=== PATIENT | male | born 1955 | race Caucasian/White ===

== ENCOUNTER 2016-06-05 11:09 | Observation (INO) ==
--- NOTE | 2016-06-05 11:42 | Emergency Department Note ---
Disposition Clinical Impression: ESRD (end stage renal disease), Anemia in chronic kidney disease (CKD), Diabetic kidney disease, Hypoglycemia, Dialysis catheter clot or failure, Hypertension, IV infiltration Disposition: Admitted As Inpatient Condition: Fair Referrals: Brant Souza MD [Primary Care Provider] - Forms: Work/School Release, ED Satisfaction Letter General Adult HPI - General Chief complaint: ED General Medical Stated complaint: IVport needs replaced Time Seen by Provider: 06/05/16 11:37 Source: patient Limitations: no limitations - History of Present Illness HPI Narrative: ST 10-year-old male with a history of dialysis therapy with multiple failed dialysis catheters reports emergency department requesting catheter placement for dialysis. The patient was seen a few days ago in the ED and they were trying to arrange an outpatient placement of the dialysis port but this was not achieved. The patient has no physical complaints apart from needing the dialysis catheter. The patient denies chest pain or shortness of breath. He has had no redness of breath while laying flat. There is no history of abdominal pain vomiting or diarrhea and no bloody stools. He is a type I diabetic and reports that his blood sugar has been around 200. He gave himself a dose of insulin this morning. There is no history of confusion or headache or fever. No muscle cramps or fasciculations noted palpitations or syncope no trauma falls injuries or acute complaints otherwise. The patient essentially complains that he has not had dialysis since Thursday secondary to no functional port. Interventional radiology was aware of the patient's need for a port and reported they could place one if he came to the ED. Onset (ago): day(s) Pain Scale: 1 - Related Data Home Medications Medication Instructions Recorded Confirmed Fenofibrate [Lofibra] 160 mg PO DAILY 10/15/15 06/05/16 Insulin NPH Hum/Reg Insulin Hm 50 - 60 unit SQ DAILY 10/15/15 06/05/16 [Novolin 70-30 100 Unit/ml Vial] Oxycodone HCl/Acetaminophen 1 each PO HS 10/15/15 06/05/16 [Percocet 5-325 mg Tablet] Zolpidem [Ambien] 10 mg PO HS PRN 10/15/15 06/05/16 CloNIDine HCl 0.1 mg PO DAILY 06/05/16 06/05/16 Ondansetron [Zofran] 8 mg PO PRN PRN 06/05/16 06/05/16 Pantoprazole Sodium [Protonix] 40 mg PO DAILY 06/05/16 06/05/16 Allergies Allergy/AdvReac Type Severity Reaction Status Date / Time codeine Allergy Itching Verified 06/05/16 11:26 iodine Allergy Itching Verified 06/05/16 11:26 Penicillins Allergy Itching Verified 06/05/16 11:26 Sulfa (Sulfonamide Allergy Itching Verified 06/05/16 11:26 Antibiotics) Jwghrjl-[id number]-Num Reductase AdvReac Weakness Verified 06/05/16 11:26 Inhibitor [Statins] IV dye Allergy Itching Uncoded 06/05/16 11:26 All systems ED: reviewed and negative except as stated. Past Medical History - Past Medical History Medical history: Reports: coronary artery disease, diabetes, dialysis, hyperlipidemia, hypertension, renal disease Surgical history: Reports: appendectomy, herniorrhaphy, other Psychiatric history: Reports: anxiety, depression - Social History Smoking Status: Never smoker Smokeless Tobacco Status: No Alcohol use: Reports: none Drug use: Reports: none Physical Exam - General Limitations: no limitations General appearance: alert, in no apparent distress - Head Head exam: atraumatic, normocephalic, normal inspection - Eye Eye exam: Present: normal appearance, PERRL, EOMI. Absent: scleral icterus, conjunctival injection, miosis, mydriasis - ENT ENT exam: normal exam, normal oropharynx, mucous membranes moist, TM's normal bilaterally, normal external ear exam - Neck Neck exam: Present: normal inspection, full ROM, trachea midline. Absent: tenderness - Chest Chest inspection: Present: symmetric chest wall rise. Absent: tenderness - Respiratory Respiratory exam: Present: normal lung sounds bilaterally. Absent: respiratory distress - Cardiovascular Cardiovascular exam: Present: regular rate, normal rhythm, normal heart sounds - Abdominal Exam Abdominal exam: Present: soft, Non-Tender. Absent: tenderness, distention, guarding, rebound, rigidity, pulsatile mass - Extremities Exam Extremities exam: Present: normal inspection, full ROM, normal capillary refill , joint swelling, other (Lower extremity edema symmetric bilateral). Absent: tenderness, pedal edema, calf tenderness - Expanded Lower Extremity Exam Neurovascular/Tendon exam: Absent: motor deficit, sensory deficit, tendon deficit - Back Exam Back exam: Present: normal inspection, full ROM. Absent: tenderness, CVA tenderness (R), CVA tenderness (L), vertebral tenderness - Neurological Exam Neurological exam: Present: alert, oriented X3, CN II-XII intact. Absent: motor sensory deficit - Psychiatric Psychiatric exam: Present: normal affect, normal mood - Skin Skin exam: Present: warm, dry, intact, normal color. Absent: rash, cyanosis, diaphoresis, erythema, pallor, mottled Course Course Narrative: Interventional radiology took the patient to their suite, lab reports a sugar 47 , I notified the ER staff immediately, and nurses going there with an amp of D50. Vital Signs Temperature 97.3 F L 06/05/16 11:21 Pulse Rate 92 06/05/16 11:21 Respiratory Rate 18 06/05/16 11:21 Blood Pressure 192/84 06/05/16 11:21 O2 Sat by Pulse Oximetry 97 06/05/16 11:21 Temperature 97.3 F L 06/05/16 11:21 Pulse Rate 69 06/05/16 14:30 Respiratory Rate 14 06/05/16 14:30 Blood Pressure 181/72 06/05/16 14:30 O2 Sat by Pulse Oximetry 100 06/05/16 14:30 Oxygen Delivery Oxygen Delivery Room Air Medical Decision Making - MDM Narrative Medical decision making narrative: The patient's blood sugar dropped down to 47, he was given orange juice and an amp of D50, they were unable to complete the dialysis catheter placement. Dr. Conn/EDISON felt the patient was not stable enough to get the procedure done based on his hypoglycemia and by mouth intake acutely. The patient is in renal failure will require dialysis tomorrow. Dr. Conn recommends the patient be admitted for glucose control and prepped for surgery tomorrow morning. He will need dialysis tomorrow as well. The patient is currently stable. His recheck blood sugar was 160. Based on his hypoglycemia, renal failure, no access, and dialysis requirement tomorrow, as well as catheter placement requirement, I felt it would be reasonable to consult with the hospitalist. Initial consultations with the hospitalist and utilization review were obtained, there is a social component to the patient's possible admission, however there is significant concern the patient may not be able to follow-up and get his dialysis port placed. Glucose was very low, he has been getting foods and IV dextrose was given but the IV infiltrated some dextrose into the arm. I discussed the case with the contract post office clerk Dr. Dudley who is of the opinion the patient should stay in the hospital for observation and preparation for procedure and blood sugar control. He is available for consult. I discussed the case with the hospitalist on-call Dr. Jain and related the contract post office clerk opinion as well as new information regarding the patient's IV. PICC line team has been consulted for IV placement. The patient's IV infiltrated, we considered hyaluronidase and reviewed with the inpatient pharmacist reported if there is no redness it would be questionable in its application and efficacious this. There was no redness in the arm. There was some mild edema. The patient is currently stable. I consulted with the hospitalist advanced diamond powder technician who is accepted the patient to their care. Patient awaiting bed placement. - Lab Data Lab results reviewed: Yes I reviewed the patient's lab results. Result diagrams: 06/05/16 12:44 06/05/16 12:44 Lab Results 06/05/16 06/05/16 06/05/16 Range/Units 12:44 12:44 12:44 WBC 6.9 (4.3-11.1) K/mcL RBC 3.24 L (4.19-5.50) M/mcL Hgb 10.2 L (12.9-16.9) g/dL Hct 31.9 L (37.5-50.1) % MCV 98.5 D (83.0-100.0) fL MCH 31.5 (28.0-33.3) pg MCHC 32.0 (31.6-35.5) g/dL RDW 15.0 H (11.5-14.5) % Plt Count 190 (140-400) K/mcL MPV 10.0 (9.4-12.4) fL PT 11.8 (9.4-12.1) Seconds INR 1.1 APTT 24.5 L (26.0-36.0) Seconds Sodium 135 L (136-145) mEq/L Potassium 4.6 H (3.5-4.5) mEq/L Chloride 105 (98-109) mEq/L Carbon Dioxide 19 (19-29) mEq/L BUN 54 H (8-26) mg/dL Creatinine 9.71 H (0.72-1.25) mg/dL Est GFR ( Amer) 7 L (> 60) Est GFR (Non-Af Amer) 6 L (> 60) BUN/Creatinine Ratio 6 (6-26) Glucose 75 (70-99) mg/dL POC Glucose (58-89) Calculated Osmolality 293 (280-300) Calcium 9.3 (8.6-10.8) mg/dL Total Bilirubin 0.4 (0.2-1.2) mg/dL AST 24 (5-34) Units/L ALT 14 (0-55) Units/L Alkaline Phosphatase 104 (38-126) Units/L Serum Total Protein 7.1 (6.0-8.3) g/dL Albumin 2.6 L (3.5-5.0) g/dL Globulin 4.5 H (2.4-3.5) g/dL Albumin/Globulin Ratio 0.6 L (1.1-2.2) 06/05/16 Range/Units 13:56 WBC (4.3-11.1) K/mcL RBC (4.19-5.50) M/mcL Hgb (12.9-16.9) g/dL Hct (37.5-50.1) % MCV (83.0-100.0) fL MCH (28.0-33.3) pg MCHC (31.6-35.5) g/dL RDW (11.5-14.5) % Plt Count (140-400) K/mcL MPV (9.4-12.4) fL PT (9.4-12.1) Seconds INR APTT (26.0-36.0) Seconds Sodium (136-145) mEq/L Potassium (3.5-4.5) mEq/L Chloride (98-109) mEq/L Carbon Dioxide (19-29) mEq/L BUN (8-26) mg/dL Creatinine (0.72-1.25) mg/dL Est GFR ( Amer) (> 60) Est GFR (Non-Af Amer) (> 60) BUN/Creatinine Ratio (6-26) Glucose (70-99) mg/dL POC Glucose 47 L* (58-89) Calculated Osmolality (280-300) Calcium (8.6-10.8) mg/dL Total Bilirubin (0.2-1.2) mg/dL AST (5-34) Units/L ALT (0-55) Units/L Alkaline Phosphatase (38-126) Units/L Serum Total Protein (6.0-8.3) g/dL Albumin (3.5-5.0) g/dL Globulin (2.4-3.5) g/dL Albumin/Globulin Ratio (1.1-2.2)
[2016-06-05 12:53] LABS: Hematocrit 31.9 % (37.5-50.1); Hemoglobin 10.2 g/dL (12.9-16.9); Mean Corpuscular Hemoglobin 31.5 pg (28.0-33.3); Platelet Count 190 K/mcL (140-400); Red Blood Count 3.24 M/mcL (4.19-5.50)
[2016-06-05 12:55] LABS: INR 1.1; Prothrombin Time 11.8 Seconds (9.4-12.1)
[2016-06-05 12:58] LABS: Activated Partial Thrombo Time 24.5 Seconds (26.0-36.0)
[2016-06-05 13:09] LABS: Mean Corpuscular Volume 98.5 fL (83.0-100.0)
[2016-06-05 13:10] LABS: Albumin 2.6 g/dL (3.5-5.0); Albumin/Globulin Ratio 0.6 (1.1-2.2); Bilirubin,Total 0.4 mg/dL (0.2-1.2); Calcium 9.3 mg/dL (8.6-10.8); Globulin 4.5 g/dL (2.4-3.5); Potassium 4.6 mEq/L (3.5-4.5); Total Protein 7.1 g/dL (6.0-8.3)
[2016-06-05] MEDS ORDERED: Heparin 1,000 UNITS/500 mL NS 0 ML ONE (13:47)
[2016-06-05] MEDS ORDERED: *HR* Dextrose 50 % in Water (Syg) 50 ML SYRINGE IVP ONE (14:13)
[2016-06-05] MEDS ORDERED: *HR* Dextrose 50 % in Water (Syg) 50 ML SYRINGE ONE (14:16)
[2016-06-05] MEDS ORDERED: Naloxone 0.4 MG/ML INJ IVP PRN (18:17)
[2016-06-05] MEDS ORDERED: Lidocaine -MPF 1% 2 ML VIAL ID PRN (18:35)
[2016-06-05] MEDS ORDERED: cloNIDine HCl 0.1 MG TABLET PO ONE (18:37)
[2016-06-05] MEDS ORDERED: Ondansetron ODT 4 MG TAB.RAPDIS PO PRN (19:27)
--- NOTE | 2016-06-05 19:39 | Internal Med History&Physical ---
<Erna Ivory M - Last Filed: 06/05/16 20:54> Date of Encounter: 06/05/16 Time of Encounter: 19:32 Assessment and Plan (1) ESRD (end stage renal disease) Current visit: Yes Status: Chronic Patient has ESRD on HD MWF since last October. Unfortunately his HD catheter clotted on Thursday and he has not had dialysis since then. He airplane dispatcher, Dr. Liu, was consulted and they plan for dialysis tomorrow after the HD catheter placement. (2) Dialysis catheter clot or failure Current visit: Yes Status: Acute Patient presented for outpatient IR placement of dialysis catheter after his previous clotted on Thursday. Unfortunately they were unable to proceed this afternoon and will plan to complete the IR placement of the HD catheter tomorrow morning. IR consulted and aware of patient and plan. NPO after midnight for procedure. (3) Type 1 diabetes Current visit: Yes Status: Chronic Diabetic diet until midnight. NPO after midnight for procedure. Check blood sugar ACHS, then Q6hrs while NPO Hold home basal dose as patient has been hypoglycemic and will be NPO after midnight. Sliding scale correction dose HS and Q6hr while NPO. Hypoglycemic protocol. Qualifiers: Diabetes mellitus complication status: with kidney complications Diabetes mellitus complication detail: with chronic kidney disease Chronic kidney disease stage: on chronic dialysis Qualified Code(s): E10.22 - Type 1 diabetes mellitus with diabetic chronic kidney disease; N18.6 - End stage renal disease; Z99.2 - Dependence on renal dialysis (4) Hypertension Current visit: Yes Status: Acute Continue home dose of Clonidine and Qualifiers: Hypertension type: essential hypertension Qualified Code(s): I10 - Essential (primary) hypertension (5) DVT prophylaxis Current visit: No Status: Acute Encourage ambulation anti-embolic stockings Heparin 5,000u SQ BID Internal Medicine - H&P: HPI Chief complaint: Needs HD catheter placement and dialysis Admitted From: Emergency Dept Plans for Post Hospital Care: Home History of present illness: Mr. Spencer is a 60 year old male with ESRD on HD since October, type 1 diabetes since age 5, CAD, HTN, multiple failed HD catheters, failed AVF, failed AVG who presented to IR for outpatient procedure for HD catheter placement. Unfortunately, his blood sugar was too low, they gave him orange juice to correct it, and decided to delay because he was then not NPO. Patient has not had dialysis since last Thursday. ED physician discussed with IR, Dr. Conn, and patient's airplane dispatcher, who recommended he stay and plan the procedure for tomorrow followed by dialysis. Patient reports he has been on dialysis since October, and has had 9 failed HD catheters, some due to infection, most due to clotting. He had a RUE fistula which failed and a LUE graft which also failed. He denies any pain, shortness of breath, palpitations, headache, nausea, vomiting. He feels well. Labs are stable. On exam he is alert and oriented in no distress. Lungs are clear bilaterally and heart has regular rate and rhythm with systolic murmur. Past Med Surg Social Fam HX - Past Medical History Medical history: coronary artery disease, diabetes (type 1 diabetes), dialysis, hyperlipidemia, hypertension, myocardial infarction, renal disease (ESRD on HD MWF) Psychiatric history: anxiety, depression - Past Surgical History Surgical History: appendectomy, herniorrhaphy, other - Social History Smoking Status: Never smoker Smokeless Tobacco Status: No Alcohol use: none Drug use: none - Family History Father Living Status: Hx Family Cancer: Yes (prostate cancer) Mother Living Status: Hx Family Cancer: Yes (breast cancer) Internal Medicine - H&P: Meds Fenofibrate [Lofibra] 160 mg PO DAILY 10/15/15 [History] Insulin NPH Hum/Reg Insulin Hm [Novolin 70-30 100 Unit/ml Vial] 50 - 60 unit SQ DAILY 10/15/15 [History] Oxycodone HCl/Acetaminophen [Percocet 5-325 mg Tablet] 1 each PO HS 10/15/15 [ History] Zolpidem [Ambien] 10 mg PO HS PRN 10/15/15 [History] CloNIDine HCl 0.1 mg PO DAILY 06/05/16 [History] Ondansetron [Zofran] 8 mg PO PRN PRN 06/05/16 [History] Pantoprazole Sodium [Protonix] 40 mg PO DAILY 06/05/16 [History] Allergies codeine Allergy (Verified 06/05/16 11:26) Itching iodine Allergy (Verified 06/05/16 11:26) Itching Penicillins Allergy (Verified 06/05/16 11:26) Itching Sulfa (Sulfonamide Antibiotics) Allergy (Verified 06/05/16 11:26) Itching Obntpjq-Owe-Rde Reductase Inhibitor [Statins] Adverse Reaction (Verified 11:26) Weakness IV dye Allergy (Uncoded 06/05/16 11:26) Itching All Systems PM: A 10-system review of systems was performed and is negative for pertinent findings except as documented above in the HPI. - Constitutional Constitutional: no chills, no fever(s), no night sweats - EENT Eyes: no change in vision, no discharge, no pain, no photophobia Ears: no ear discharge, no ear pain, no tinnitus Nose, mouth and throat: no dysphagia, no nasal discharge, no neck pain, no sore throat - Cardiovascular Cardiovascular ROS IM: no chest pain, no diaphoresis, no dyspnea, no lightheadedness, no palpitations, no syncope - Respiratory Respiratory: no cough, no dyspnea, no wheezing, no excessive phlegm production - Gastrointestinal Gastrointestinal: no abdominal pain, no diarrhea, no hematemesis, no hematochezia, no melena, no nausea, no vomiting - Musculoskeletal Musculoskeletal ROS IM: no numbness, no tingling - Integumentary Integumentary IM: no rash, no unusual bruising - Neurological Neurological ROS: no confusion, no convulsions, no focal weakness, no numbness, no tingling, no tremor(s) - Hematologic/Lymphatic Hematologic/Lymphatic: no easy bruising - Constitutional Vitals: Temp Pulse Resp BP Pulse Ox 97.3 F L 69 12 188/79 100 06/05/16 11:21 06/05/16 14:30 06/05/16 18:33 06/05/16 18:33 06/05/16 14:30 General appearance: Present: A&O X 3, no acute distress - Head Head exam: Present: atraumatic, normocephalic - Eye Eye exam: Present: PERRL, conjuntiva pink, sclera anicteric Pupils: Present: PERRL - Neck Neck exam general surgery: Present: supple, trachea midline. Absent: lymphadenopathy - Respiratory Respiratory exam: Present: CTAB. Absent: accessory muscle use, rales, rhonchi, wheezes - Cardiovascular Cardiovascular exam: Present: RRR, +S1, +S2, systolic murmur. Absent: diastolic murmur, gallop, rubs - GI/Abdominal GI/Abdominal exam: Present: normal bowel sounds, soft, no peritoneal signs. Absent: distended, tenderness - Extremities Exam Extremities exam: Present: pedal edema (BLE +3), warm, radial pulses palpable and symetrical. Absent: calf tenderness, cyanotic - Neurological Exam Neurological exam: Present: CN II-XII intact, oriented X3, no focal deficits. Absent: facial droop, speech deficit - Skin Skin exam: Present: dry, intact Internal Med - H&P Results - Labs CBC & Chem 7: 06/05/16 12:44 06/05/16 12:44 Labs: All Lab Results (24 Hours) 06/05/16 06/05/16 06/05/16 Range/Units 12:44 12:44 12:44 WBC 6.9 (4.3-11.1) K/mcL RBC 3.24 L (4.19-5.50) M/mcL Hgb 10.2 L (12.9-16.9) g/dL Hct 31.9 L (37.5-50.1) % MCV 98.5 D (83.0-100.0) fL MCH 31.5 (28.0-33.3) pg MCHC 32.0 (31.6-35.5) g/dL RDW 15.0 H (11.5-14.5) % Plt Count 190 (140-400) K/mcL MPV 10.0 (9.4-12.4) fL PT 11.8 (9.4-12.1) Seconds INR 1.1 APTT 24.5 L (26.0-36.0) Seconds Sodium 135 L (136-145) mEq/L Potassium 4.6 H (3.5-4.5) mEq/L Chloride 105 (98-109) mEq/L Carbon Dioxide 19 (19-29) mEq/L BUN 54 H (8-26) mg/dL Creatinine 9.71 H (0.72-1.25) mg/dL Est GFR ( Amer) 7 L (> 60) Est GFR (Non-Af Amer) 6 L (> 60) BUN/Creatinine Ratio 6 (6-26) Glucose 75 (70-99) mg/dL POC Glucose (58-89) Calculated Osmolality 293 (280-300) Calcium 9.3 (8.6-10.8) mg/dL Total Bilirubin 0.4 (0.2-1.2) mg/dL AST 24 (5-34) Units/L ALT 14 (0-55) Units/L Alkaline Phosphatase 104 (38-126) Units/L Serum Total Protein 7.1 (6.0-8.3) g/dL Albumin 2.6 L (3.5-5.0) g/dL Globulin 4.5 H (2.4-3.5) g/dL Albumin/Globulin Ratio 0.6 L (1.1-2.2) 06/05/16 06/05/16 Range/Units 13:56 19:12 WBC (4.3-11.1) K/mcL RBC (4.19-5.50) M/mcL Hgb (12.9-16.9) g/dL Hct (37.5-50.1) % MCV (83.0-100.0) fL MCH (28.0-33.3) pg MCHC (31.6-35.5) g/dL RDW (11.5-14.5) % Plt Count (140-400) K/mcL MPV (9.4-12.4) fL PT (9.4-12.1) Seconds INR APTT (26.0-36.0) Seconds Sodium (136-145) mEq/L Potassium (3.5-4.5) mEq/L Chloride (98-109) mEq/L Carbon Dioxide (19-29) mEq/L BUN (8-26) mg/dL Creatinine (0.72-1.25) mg/dL Est GFR ( Amer) (> 60) Est GFR (Non-Af Amer) (> 60) BUN/Creatinine Ratio (6-26) Glucose (70-99) mg/dL POC Glucose 47 L* 66 (58-89) Calculated Osmolality (280-300) Calcium (8.6-10.8) mg/dL Total Bilirubin (0.2-1.2) mg/dL AST (5-34) Units/L ALT (0-55) Units/L Alkaline Phosphatase (38-126) Units/L Serum Total Protein (6.0-8.3) g/dL Albumin (3.5-5.0) g/dL Globulin (2.4-3.5) g/dL Albumin/Globulin Ratio (1.1-2.2) <Mitesh Wasserman - Last Filed: 06/06/16 00:20> Date of Encounter: 06/05/16 Internal Medicine - H&P: HPI History of present illness: Mr. Spencer is a 60 year old male All Systems PM: A 10-system review of systems was performed and is negative for pertinent findings except as documented above in the HPI. - Constitutional Vitals: Temp Pulse Resp BP Pulse Ox 99.0 F 81 16 180/72 100 06/05/16 20:37 06/05/16 20:37 06/05/16 20:37 06/05/16 21:44 06/05/16 20:37 Internal Med - H&P Results - Labs CBC & Chem 7: 06/05/16 12:44 06/05/16 12:44 - Attending Attestation I examined this patient and my medical decision-making was reviewed with the NEWSPAPER PHOTOGRAPHER/PA/Advanced Practice Nurse/Resident Physician. I agree with the documented findings, disposition and treatment plan as described except to the extent set forth below. I have personally evaluated the pt and discussed the details with INTENSIVE CARE UNIT REGISTERED NURSE. Pt was admitted following hypoglycemia at the dialysis catheter placement. Hold his scheduled insulin. start sliding scale insulin. Expected to have dialysis catheter tomorrow.
[2016-06-05] MEDS ORDERED: *HR* Heparin 5,000 UNIT/ML VIAL SQ SCH (20:00)
[2016-06-05] MEDS ORDERED: D5% in Water 1,000 ML IV PRN (20:51)
[2016-06-05] MEDS ORDERED: Dextrose Gel 15 GM PO PRN ×2 (20:51)
[2016-06-05] MEDS ORDERED: *HR* OxyCODONE/APAP 5/325 TABLET PO SCH (21:00)
[2016-06-05] MEDS ORDERED: Insulin LISPRO 300 UNITS/3 ML VIAL SQ SCH (21:00)
[2016-06-05] MEDS ORDERED: *HR* Metoprolol 5 MG/5 ML VIAL IVP PRN (21:53)
[2016-06-06] MEDS ORDERED: Insulin LISPRO 300 UNITS/3 ML VIAL SQ SCH
[2016-06-06] MEDS ORDERED: *HR* Dextrose 50 % in Water (Syg) 50 ML SYRINGE IVP PRN (00:14)
[2016-06-06] MEDS ORDERED: D5% in Water 1,000 ML IV PRN (00:14)
[2016-06-06] MEDS ORDERED: Dextrose Gel 15 GM PO PRN ×2 (00:14)
[2016-06-06] MEDS: *HR* Dextrose 50 % in Water (Syg) 50 ML SYRINGE IVP PRN ×2 (03:41→07:32)
[2016-06-06 05:09] LABS: Basophils # 0.1 K/mcL (0.0-0.2); Basophils % 0.8 %; Eosinophils # 0.7 K/mcL (0.0-0.6); Eosinophils % 11.9 %; Hematocrit 28.1 % (37.5-50.1); Hemoglobin 9.1 g/dL (12.9-16.9); Immature Granulocytes % 0.6 % (0-4); Lymphocytes % 31.8 %; Mean Corpuscular HGB Conc 32.4 g/dL (31.6-35.5); Mean Corpuscular Hemoglobin 31.5 pg (28.0-33.3); Mean Corpuscular Volume 97.2 fL (83.0-100.0); Mean Platelet Volume 9.8 fL (9.4-12.4); Monocytes # 0.5 K/mcL (0.0-1.3); Monocytes % 7.6 %; Neutrophils # 2.9 K/mcL (1.6-8.9); Platelet Count 195 K/mcL (140-400); Red Blood Count 2.89 M/mcL (4.19-5.50); Red Cell Distribution Width 14.6 % (11.5-14.5); Segmented Neutrophils % 47.3 %
[2016-06-06 05:21] LABS: Potassium 4.8 mEq/L (3.5-4.5)
[2016-06-06] MEDS: Insulin LISPRO 300 UNITS/3 ML VIAL SQ SCH ×3 (07:27→16:47)
[2016-06-06] MEDS ORDERED: D10% in Water 1,000 ML IVC SCH (07:45)
[2016-06-06] MEDS ORDERED: Heparin 1,000 UNITS/500 mL NS 500 ML ONE (08:50)
[2016-06-06] MEDS ORDERED: Clindamycin 600 MG/50 ML 600 MG/50 ML IV.SOLN IVPB STA (09:16)
[2016-06-06] MEDS ORDERED: D5% in Water 500 ML ONE (09:16)
[2016-06-06] MEDS: *HR* FentaNYL (PF) 100 MCG/2 ML VIAL IVP PRN ×2 (09:24→09:34)
[2016-06-06] MEDS: *HR* Midazolam HCl 2 MG/2 ML VIAL IVP PRN ×2 (09:25→09:34)
[2016-06-06] MEDS ORDERED: *HR* Heparin 5,000 UNIT/ML VIAL ONE (09:50)
--- NOTE | 2016-06-06 10:05 | IR Procedure Note ---
Date of procedure: 06/06/16 Consent Obtained: Written consent Timeout: Correct patient and procedure verified, Correct site verified, Time out performed, Skin prep completed Local anesthetic: Lidocaine 1% Indications: CRF Procedure Performed: Tunneled dialysis catheter placement Results/Findings: [facility]J 14F 32 cm Noé-Split TDC placement Complications: None; Tolerated procedure well (Monitor on floor)
--- NOTE | 2016-06-06 10:05 | Pre-Sedation Evaluation ---
Pre-sedation evaluation - Pre-sedation checklist Date of procedure: 06/06/16 Procedure: permacath Recent Vitals: Last Vital Signs Temp 98.1 F 06/06/16 07:14 Pulse 95 06/06/16 09:49 Resp 21 06/06/16 09:49 BP 150/69 06/06/16 09:49 Pulse Ox 100 06/06/16 09:49 H&P (including ROS) documented in medical record: Yes Previous reaction to sedatives/anesthetics: No Dietary Status: NPO after Midnight Dentition: No loose teeth or bridges ASA Classification *see protocol: CLASS III-Severe systemic disease Plan of Care: Pt appropriate candidate for procedure/moderate/conscious sedation , Risks/benefits of procedure/sedation discussed w/ patient/family
[2016-06-06] MEDS ORDERED: Ondansetron ODT 4 MG TAB.RAPDIS SL PRN (10:49)
[2016-06-06] MEDS ORDERED: *HR* OxyCODONE/APAP 5/325 TABLET PO PRN (10:50)
--- NOTE | 2016-06-06 11:38 | Nephrology Consult Note ---
Date of Encounter: 06/06/16 Time of Encounter: 11:40 Assessment and Plan (1) ESRD (end stage renal disease) Current Visit: Yes Status: Chronic Will initiate HD today with no UF given history of hypotension (2) Dialysis catheter clot or failure Current Visit: Yes Status: Acute s/p permcath exchange to the opposite side, will test run during hd today (3) Anemia in chronic kidney disease (CKD) Current Visit: Yes Status: Chronic Hgb noted low at 9.2, will monitor and administer EPO if needed History of Present Illness - Reason for Consult Consult date: 06/06/16 end stage renal disease Requesting physician: Erna Ivory - History of Present Illness 60 y o male with PMH of ESRD for the past year complicated by multiple permcath issues including infection and occlusion admitted overnight after his new permcath excahnge was aborted due to hypoglycemic episode. Last HD was the thursday previously due to another permcath occlusion. Pt seen and examined after new permcath placed on opposite by IR. No new complaints and eagerly awaiting HD today. Past Med Surg Social Fam HX - Past Medical History Medical history: coronary artery disease, diabetes (type 1 diabetes), dialysis, hyperlipidemia, hypertension, myocardial infarction, renal disease (ESRD on HD MWF) Psychiatric history: anxiety, depression - Past Surgical History Surgical History: appendectomy, herniorrhaphy, other - Social History Smoking Status: Never smoker Smokeless Tobacco Status: No Alcohol use: none Drug use: none - Family History Father Living Status: Hx Family Cancer: Yes (prostate cancer) Mother Living Status: Hx Family Cancer: Yes (breast cancer) Medications and Allergies Fenofibrate [Lofibra] 160 mg PO DAILY 10/15/15 [History] Insulin NPH Hum/Reg Insulin Hm [Novolin 70-30 100 Unit/ml Vial] 50 - 60 unit SQ DAILY 10/15/15 [History] Oxycodone HCl/Acetaminophen [Percocet 5-325 mg Tablet] 1 each PO HS 10/15/15 [ History] Zolpidem [Ambien] 10 mg PO HS PRN 10/15/15 [History] CloNIDine HCl 0.1 mg PO DAILY 06/05/16 [History] Ondansetron [Zofran] 8 mg PO PRN PRN 06/05/16 [History] Pantoprazole Sodium [Protonix] 40 mg PO DAILY 06/05/16 [History] Allergies codeine Allergy (Verified 06/05/16 11:26) Itching iodine Allergy (Verified 06/05/16 11:26) Itching Penicillins Allergy (Verified 06/05/16 11:26) Itching Sulfa (Sulfonamide Antibiotics) Allergy (Verified 06/05/16 11:26) Itching Krvewqn-Qol-Gtf Reductase Inhibitor [Statins] Adverse Reaction (Verified 11:26) Weakness IV dye Allergy (Uncoded 06/05/16 11:26) Itching Review of Systems All Systems: reviewed and no additional remarkable complaints except as stated ( except as noted in HPI) Exam - Vital Signs Vital signs: Initial Vital Signs Temp Pulse Resp BP Pulse Ox 97.3 F L 92 18 192/84 97 06/05/16 11:21 06/05/16 11:21 06/05/16 11:21 06/05/16 11:21 06/05/16 11:21 Vital Signs - Last 8 Hours Temp Pulse Resp BP Pulse Ox 06/06/16 09:49 95 21 150/69 100 06/06/16 09:44 80 14 148/75 100 06/06/16 09:38 78 16 141/76 100 06/06/16 09:35 85 21 162/75 100 06/06/16 09:27 82 19 157/76 100 06/06/16 09:24 86 16 168/85 06/06/16 09:22 80 19 168/85 100 06/06/16 07:14 98.1 F 71 16 152/78 99 06/06/16 04:51 97.6 F 64 16 149/70 98 Intake and Output 06/05/16 06/06/16 06/06/16 23:59 07:59 15:59 Intake Total 50 / 50 Balance 50 / 50 Intake: IV Fluids 50 / 50 Cleocin 600 MG/50 ML 600 50 / 50 mg In 50 ml @ 50 mls/hr IVPB NOW STA Rx#: [id number] Oral 0 / 0 Other: Meal Breakfast Percent of Meal Consumed 0% Weight 82 kg Blood Glucose* 41 233 Patient Weight 06/06/16 23:59 Weight 82 kg - General Appearance General appearance: chronically ill (NAD) EENT: ATNC, mucous membranes moist Neck: no JVD, supple Respiratory: clear Cardiology: edema (trace LE bilat), normal S1, normal S2 - Dialysis Access Dialysis Vascular Access: Venous Catheter Gastrointestinal: no tenderness, no guarding Integumentary: warm and dry Neurologic: no focal deficit Musculoskeletal: no deformities Psychiatric: mood/affect appropriate Results - Lab Results 06/06/16 04:50 06/06/16 04:50 Most recent lab results Calcium 9.0 mg/dL (8.6-10.8) 06/06/16 04:50 Consult Discharge Plan - Plan Instructions: Hemodialysis (DC), Diabetes Mellitus Type 1 in Adults (DC) Referrals: Brant Souza MD [Primary Care Provider] -
[2016-06-06] MEDS ORDERED: 0.9 % Sodium Chloride 250 ML IV PRN (15:06)
[2016-06-06] MEDS: Acetaminophen 325 MG TABLET PO PRN (16:07)
--- NOTE | 2016-06-06 16:24 | Electrocardiograph Report ---
[facility] Test Date: 2016-06-05 Pat Name: CHIDI NARVAEZ Department: 112 Room: 2A36 Gender: M Mica [employer] Feeder: NGUYEN : 1955 Requested By: Brian Mckeon Order Number: [id number] Reading MD: Jaspreet Saeed DO Measurements Intervals [place] Rate: 68 P: 54 IN: 155 QRS: -41 QRSD: 88 T: 10 QT: 358 QTc: 375 Interpretive Statements SINUS RHYTHM LEFT AXIS DEVIATION POSSIBLE ANTEROSEPTAL MYOCARDIAL INFARCTION, OF INDETERMINATE AGE NONSPECIFIC ST-T CHANGES Electronically Signed On 06-06-16 16:22:27 EST by Jaspreet Saeed DO
[2016-06-06] MEDS: Fenofibrate 54 MG TABLET PO SCH (16:46)
[2016-06-06] MEDS: cloNIDine HCl 0.1 MG TABLET PO SCH (16:47)
[2016-06-06 17:46] LABS: Hepatitis B Surface Antibody 0.08 mIU/mL; Hepatitis B Surface Antigen Nonreactive (Nonreactive)
--- NOTE | 2016-06-06 18:01 | Internal Med Progress Note ---
Date of Encounter: 06/06/16 Time of Encounter: 11:25 - Assessment and plan (1) Hypertension Current Visit: Yes Status: Chronic Assessment and plan: Continue home meds Qualifiers: Hypertension type: essential hypertension Qualified Code(s): I10 - Essential (primary) hypertension (2) Hypoglycemia Current Visit: Yes Status: Resolved Assessment and plan: Now resolved Continue sliding scale insulin If patient begins to feed, will add basal (3) Anemia in chronic kidney disease (CKD) Current Visit: Yes Status: Chronic Assessment and plan: Chronic, stable (4) ESRD (end stage renal disease) Current Visit: Yes Status: Chronic (5) Type 1 diabetes Current Visit: Yes Status: Chronic Assessment and plan: FS ACHS Sliding scale insulin, pre-meal and basal insulin Diabetic diet Qualifiers: Diabetes mellitus complication status: with kidney complications Diabetes mellitus complication detail: with chronic kidney disease Chronic kidney disease stage: on chronic dialysis Qualified Code(s): E10.22 - Type 1 diabetes mellitus with diabetic chronic kidney disease; N18.6 - End stage renal disease; Z99.2 - Dependence on renal dialysis - Subjective Interval history: 60 Y/O M Here for management of hypoglycemia and placement of permacath for HD access today He is seen at bedside after procedure He had been started on D10 since a.m since his hypoglycemia persisted He has a PMH of ESRD on HD, Type I DM and HTN At time of review he had no new complains - Constitutional Vitals: Temp Pulse Resp BP Pulse Ox 98.7 F 68 22 159/64 97 06/06/16 16:23 06/06/16 16:23 06/06/16 16:23 06/06/16 16:23 06/06/16 16:23 General appearance: Present: A&O X 3, pleasant, no acute distress - Head Head exam: Present: atraumatic, normocephalic - Eye Eye exam: Present: PERRL, conjuntiva pink, sclera anicteric Pupils: Present: PERRL - Neck Neck exam general surgery: Present: supple, trachea midline. Absent: lymphadenopathy - Respiratory Respiratory exam: Present: CTAB Additional comments: Chest wall with wound dressing on right subclavian region, [place] dry Left subclavian permacath region clean and dry, no oozing Chest is clear to auscultation bilaterally - Cardiovascular Cardiovascular exam: Present: RRR, +S1, +S2. Absent: diastolic murmur, gallop, rubs, systolic murmur - GI/Abdominal GI/Abdominal exam: Present: normal bowel sounds, soft, no peritoneal signs. Absent: distended, tenderness - Extremities Exam Extremities exam: Present: warm, radial pulses palpable and symetrical. Absent : calf tenderness, cyanotic, pedal edema - Neurological Exam Neurological exam: Present: CN II-XII intact, oriented X3, no focal deficits. Absent: pronater drift, facial droop, speech deficit - Skin Skin exam: Present: dry Internal Medicine: Result - Labs CBC & Chem 7: 06/06/16 04:50 06/06/16 04:50 Labs: Short CBC 06/06/16 Range/Units 04:50 WBC 6.2 (4.3-11.1) K/mcL Hgb 9.1 L (12.9-16.9) g/dL Hct 28.1 L (37.5-50.1) % Plt Count 195 (140-400) K/mcL Neutrophils # 2.9 (1.6-8.9) K/mcL BMP 06/06/16 04:50 Sodium 134 L Potassium 4.8 H Chloride 105 Carbon Dioxide 20 BUN 56 H Creatinine 9.86 H Glucose 83 Calcium 9.0 - ABG Interpretation ABG results: PT/INR, D-dimer PT 11.8 Seconds (9.4-12.1) 06/05/16 12:44 - Impressions Impressions Guidance Needle Placement Ultrasound 06/06/16 00:00 IMPRESSION: 1. Left internal jugular vein tunneled dialysis catheter placement as discussed above. D/ / Brenden Aquino MD / Brenden Aquino MD Interpreting Provider: Brenden Aquino MD Insertion Tunneled Catheter 06/06/16 00:00 IMPRESSION: 1. Left internal jugular vein tunneled dialysis catheter placement as discussed above. D/ / Brenden Aquino MD / Brenden Aquino MD Interpreting Provider: Brenden Aquino MD - VTE Documentation of Mechanical Device: Graduated compression elastic hosiery Consult Discharge Plan - Plan Referrals: Brant Souza MD [Primary Care Provider] -
[2016-06-06] MEDS: *HR* Heparin 5,000 UNIT/ML VIAL SQ SCH (18:58)
[2016-06-07] MEDS: Insulin DETEMIR 100 UNIT/ML X5UNITS SQ SCH ×2 (01:13→01:22)
[2016-06-07] MEDS: Acetaminophen 325 MG TABLET PO PRN (01:13)
[2016-06-07] MEDS: *HR* Heparin 5,000 UNIT/ML VIAL SQ SCH (05:56)
[2016-06-07] MEDS: Insulin LISPRO 300 UNITS/3 ML VIAL SQ SCH ×4 (07:23→11:58)
[2016-06-07] MEDS: cloNIDine HCl 0.1 MG TABLET PO SCH (08:57)
[2016-06-07] MEDS: Fenofibrate 54 MG TABLET PO SCH (08:57)
[2016-06-07 11:05] VITALS: BP 133/65
--- NOTE | 2016-06-07 12:23 | Discharge Summary ---
Date of Encounter: 06/07/16 Time of Encounter: 12:00 - Discharge Diagnosis (1) Hypertension Priority: Primary Status: Chronic Qualifiers: Hypertension type: essential hypertension Qualified Code(s): I10 - Essential (primary) hypertension (2) Hypoglycemia Priority: Primary Status: Resolved (3) Anemia in chronic kidney disease (CKD) Priority: Secondary Status: Chronic (4) ESRD (end stage renal disease) Priority: Secondary Status: Chronic (5) Type 1 diabetes Priority: Secondary Status: Chronic Qualifiers: Diabetes mellitus complication status: with kidney complications Diabetes mellitus complication detail: with chronic kidney disease Chronic kidney disease stage: on chronic dialysis Qualified Code(s): E10.22 - Type 1 diabetes mellitus with diabetic chronic kidney disease; N18.6 - End stage renal disease; Z99.2 - Dependence on renal dialysis - Discharge Medications Home Medications: Fenofibrate [Lofibra] 160 mg PO DAILY 10/15/15 [History] Insulin NPH Hum/Reg Insulin Hm [Novolin 70-30 100 Unit/ml Vial] 50 - 60 unit SQ DAILY 10/15/15 [History] Oxycodone HCl/Acetaminophen [Percocet 5-325 mg Tablet] 1 each PO HS 10/15/15 [ History] Zolpidem [Ambien] 10 mg PO HS PRN 10/15/15 [History] CloNIDine HCl 0.1 mg PO DAILY 06/05/16 [History] Ondansetron [Zofran] 8 mg PO PRN PRN 06/05/16 [History] Pantoprazole Sodium [Protonix] 40 mg PO DAILY 06/05/16 [History] Allergies/Adverse Reactions: Allergies codeine Allergy (Verified 06/05/16 11:26) Itching iodine Allergy (Verified 06/05/16 11:26) Itching Penicillins Allergy (Verified 06/05/16 11:26) Itching Sulfa (Sulfonamide Antibiotics) Allergy (Verified 06/05/16 11:26) Itching Rwbcpom-Ojb-Yos Reductase Inhibitor [Statins] Adverse Reaction (Verified 11:26) Weakness IV dye Allergy (Uncoded 06/05/16 11:26) Itching Procedures/tests Complete & Pending: Procedures Performed prior 72 hours Category Date Time Status IR cvc insrt tunnel wo prt/service aide [IR] Routine IR 06/06/16 Completed IR us guide needle place [IR] Routine IR 06/06/16 Completed ECG 12 lead ECG [ECG] Routine Y 06/05/16 22:12 Completed Date of admission: 06/05/16 18:05 Primary care physician: Brant Souza MD Consults: 06/05/16 18:35 Consult to Invasive Line Access Team [CONS] Routine Reason for Consult: poor access Line Type: EPIV 06/05/16 19:53 Consult to Nephrology [CONS] Routine Consulting Provider: [facility] Reason for Consult: ESRD on HD MWF. HD cath clotted last thursday, plan to replace in IR tomorrow followed by HD. Call Completed: Yes 06/06/16 15:15 Consult to Dialysis [CONS] ONCE Discharging clinician: Brian Mckeon Anticipated date of discharge: 06/07/16 - Patient Status Disposition: Home, Self-Care Condition: Fair - Discharge Instructions Follow Up With: Brant Souza MD [Primary Care Provider] - - Diet and Activity Activity: resume usual activities as tolerated Diet: diabetic diet, low fat, low cholesterol, low salt diet Interval History: See below Hospital course: Mr. Spencer is a 60 year old male with PMH of ESRD, DM1, HLD, HTN He was hospitalized after an episode of hypoglycemia while being prepared for permacath placement His hypoglycemia has since resolved He has received insulin sliding scale and basal He is s/p HD yesterday He is seen at bedside, has no new complains He is stable to be discharged home to resume his home meds and HD as out-patient He refused Flu shot he is educated to check his Fingersticks and adjust his insulin appropriately - Time Spent with Patient Total time spent providing and/or coordinating discharge services: Less than 30 minutes - Constitutional Vitals: Temp Pulse Resp BP Pulse Ox 98.9 F 67 14 133/65 97 06/07/16 11:00 06/07/16 11:00 06/07/16 11:00 06/07/16 11:00 06/07/16 11:00 General appearance: Present: A&O X 3, pleasant, no acute distress - Head Head exam: Present: atraumatic, normocephalic - Eye Eye exam: Present: PERRL, conjuntiva pink, sclera anicteric Pupils: Present: PERRL - Neck Neck exam general surgery: Present: supple, trachea midline. Absent: lymphadenopathy - Respiratory Respiratory exam: Present: CTAB. Absent: accessory muscle use, rales, rhonchi, wheezes Additional comments: Right permacath site clean and dry Wound dressing on left chest wall previous site clean and dry - Cardiovascular Cardiovascular exam: Present: RRR, +S1, +S2, systolic murmur. Absent: diastolic murmur, gallop, rubs - GI/Abdominal GI/Abdominal exam: Present: normal bowel sounds, soft, no peritoneal signs. Absent: distended, tenderness - Extremities Exam Extremities exam: Present: pedal edema (Trace edema), warm, radial pulses palpable and symetrical. Absent: calf tenderness, cyanotic - Neurological Exam Neurological exam: Present: CN II-XII intact, oriented X3, no focal deficits. Absent: pronater drift, facial droop, speech deficit - Skin Skin exam: Present: dry - VTE Documentation of Mechanical Device: Graduated compression elastic hosiery
--- NOTE | 2016-06-07 13:31 | Nephrology Progress Note ---
Date of Encounter: 06/07/16 Time of Encounter: 12:00 - Assessment and Plan (1) ESRD (end stage renal disease) Current Visit: Yes Status: Chronic s/p HD yesterday, next HD for day at outpatient facility at [facility] upon discharge (2) Dialysis catheter clot or failure Current Visit: Yes Status: Acute s/p permcath exgange, new catheter appears to be working well so far (3) Anemia in chronic kidney disease (CKD) Current Visit: Yes Status: Chronic Hgb at 9.1, EPO on outpatient Subjective Interval history: pt seen and examined eager to go home. s/p HD yesterday which ran smoothly without any issues. Feels better afterwards Objective - Vital Signs Vital signs: Vital Signs Temp Pulse Resp BP Pulse Ox 06/07/16 11:00 98.9 F 67 14 133/65 97 06/07/16 09:00 96 06/07/16 07:02 98.4 F 75 16 137/69 96 06/07/16 04:57 98.5 F 86 16 106/47 95 06/07/16 01:34 98.8 F 86 18 164/73 97 06/07/16 00:25 20 176/76 06/07/16 00:10 195/76 06/06/16 23:55 194/65 06/06/16 23:40 191/76 06/06/16 23:25 176/96 06/06/16 23:10 185/82 06/06/16 22:55 172/72 06/06/16 22:40 145/73 06/06/16 22:25 185/81 06/06/16 22:10 145/92 06/06/16 21:55 151/89 06/06/16 21:40 142/96 06/06/16 21:25 18 145/100 06/06/16 19:00 97 06/06/16 16:23 98.7 F 68 22 159/64 97 Intake and Output 06/06/16 06/07/16 06/07/16 23:59 07:59 15:59 Intake Total 600 / 600 480 / 480 Output Total 600 / 600 Balance 600 / 600 -600 / -600 480 / 480 Intake: Oral 480 / 480 Intake, Rinseback and 600 / 600 Flushes Output: Total Dialysis Output 600 / 600 Other: Meal Lunch Percent of Meal Consumed 75% Weight 81.193 kg Blood Glucose* 199 69 189 Hemodialysis Net Fluid 0 0 Removed (mL) Patient Weight 06/07/16 23:59 Weight 81.193 kg - Lab 06/06/16 04:50 06/06/16 04:50 Most recent lab results Calcium 9.0 mg/dL (8.6-10.8) 06/06/16 04:50 - VTE Documentation of Mechanical Device: Graduated compression elastic hosiery Consult Discharge Plan - Plan Instructions: Hemodialysis (DC), Diabetes Mellitus Type 1 in Adults (DC) Referrals: Brant Souza MD [Primary Care Provider] -
== END 2016-06-07 13:51 | disposition home or self-care (01) ==
LOC: 2ANU 11:09 → EMEROO 11:09 → 2ANU 18:45
PROVIDERS: ADMIT Internal Medicine; ATTEND Internal Medicine
PROC: IRPERMA (2016-06-06 12:00)